=== PATIENT | male | born 1935 | race Caucasian/White ===

== ENCOUNTER 2019-08-09 09:21 | Emergency (ER) | payer MEDICARE ==
[~2019-08-09] VITALS: Ht 182.9 cm; Wt 81.2 kg
[~2019-08-09 09:21] MED LIST: Bactrim Ds Tab1 EACH PO; CYCL10 PO; Cleocin HCl300 MG PO; ENOX100I SQ; FINA5 PO; HYDACE5 PO; TAMS.4ER PO; TESTOSTERONE INJ; WARF5 PO
[2019-08-09] MEDS ORDERED: CEPH500 PO (09:58)
[2019-08-09] MEDS ORDERED: Mupirocin22 GM TOP (09:58)
== END 2019-08-09 10:39 | disposition home or self-care (01) ==
LOC: ER 09:21
DX: L03.011 Cellulitis of right finger (principal); L02.511 Cutaneous abscess of right hand; Z87.891 Personal history of nicotine dependence; Z88.8 Allergy status to other drugs, medicaments and biological substances; Z79.899 Other long term (current) drug therapy
CPT/HCPCS: 99283

== ENCOUNTER 2020-08-30 13:07 | Inpatient (IN) | payer MEDICARE ==
[~2020-08-30] VITALS: Ht 182.9 cm; Wt 77.0 kg
[~2020-08-30 13:07] MED LIST changes: +CEPH500 PO; +Mupirocin22 GM TOP
[2020-08-30 13:50] LABS: BASOPHILS ABSOLUTE AUTO 0.04 K/mm3 (0.00-0.23); BASOPHILS PERCENT AUTO 0 % (0-2); EOSINOPHILS PERCENT AUTO 0 % (0-6); Hematocrit 44.4 % (37.0-53.0); Hemoglobin 15.1 g/dL (13.5-17.5); IMMATURE GRAN ABSOLUTE AUTO 0.13 K/mm3 (0.00-0.10); IMMATURE GRAN PERCENT AUTO 1 % (0-1); LYMPHOCYTES PERCENT AUTO 4 % (21-46); MONOCYTES ABSOLUTE AUTO 1.41 K/mm3 (0.16-1.47); MONOCYTES PERCENT AUTO 6 % (4-13); Mean Corpuscular HGB 32.1 pg (26.0-34.0); Mean Corpuscular Volume 95 fL (80-100); Mean Platelet Volume 9.8 fL (9.1-12.4); NEUTROPHILS PERCENT AUTO 89 % (41-73); Platelet Count 253 K/mm3 (150-400); RDW Coefficient Variation 13.6 % (11.7-14.2); RDW Standard Deviation 47.4 fL (35.1-46.3); White Blood Cell Count 23.58 K/mm3 (4.00-11.30)
[2020-08-30 14:13] LABS: Alanine Aminotransfer (ALT/SGP 20 U/L (12-78); Alk Phos 103 U/L (50-136); Anion Gap 13 mmol/L (6-16); Aspartate Aminotrans (AST/SGOT 34 U/L (12-37); Bilirubin, Total 1.6 mg/dL (0.1-1.0); Blood Urea Nitrogen 25 mg/dL (8-24); Bun/Creatinine Ratio 29.2 (12.0-20.0); CO2, Blood 19 mmol/L (21-32); Calcium, Blood 8.6 mg/dL (8.5-10.1); Chloride, Blood 107 mmol/L (98-108); Creatinine, Blood 0.86 mg/dL (0.60-1.20); Globulin, Blood 4.1 g/dL (2.2-4.0); Glomerular Filtration Rate >60 (60-); Glucose, Blood 108 mg/dL (70-99); Potassium, Blood 4.4 mmol/L (3.5-5.5); Sodium, Blood 139 mmol/L (136-145); Total Protein, Blood 8.1 g/dL (6.4-8.2)
[2020-08-30 14:32] LABS: Source, Urine Clean Catch
[2020-08-30 14:37] LABS: Appearance, Urine Clear (Clear); Bilirubin, Urine Neg (Neg); Blood, Urine 2+ (Neg); Color, Urine Yellow (P-Yellow); Glucose Qualitative, Urine Neg (Neg); Ketones, Urine 3+ (Neg); Leukocyte Esterase, Urine 1+ (Neg); Nitrite, Urine Neg (Neg); Protein, Urine Neg (Neg); Specific Gravity, Urine 1.025 (1.003-1.022); Urobilinogen, Urine NORM (Normal)
[2020-08-30 14:46] LABS: Bacteria Rare /hpf; Red Blood Cells, Urine 0-2 /hpf (0-2); Squamous Epithelial Cells Not Seen /hpf (Few); White Blood Cells, Urine 0-2 /hpf (0-5)
[2020-08-30 17:58] LABS: Creatine Kinase MB 5.8 ng/mL (0.0-3.6); Creatine Kinase MB Index 0.9 (0.0-4.0)
--- NOTE | 2020-08-31 03:10 | NUR ---
85 year old MAle with hx of dementia admitted with multiple falls found down at home by Daughter who works 12 hour days. PT weak unsteady confused appears to be hallucinating talking about furry little animals woth sharp teeth pointed ears watching him in room. PT confused impulsive with poor safety awareness. Critically high lactic acid level doubled from 2.7 to 5.6 in a matter of 2.[address] Chin updated & NS 2 l fluid bolus given 30 ml per KG wt 77 kg minus fluids already given per sepsis protocol. PT had very firm abd stooling dark brown pasty stools. Incontient & using BSC with 2 assist. Fingerpainting shortly after toileting. PT voids frequently & has urgency. Bladder scan q 6 hr PRN order obtained & bladder scanned for 556 order to straight cath if PVR greater than [address] cath for 400 ml intermittantly blood tinged urine. Voids multiple times spills urinal several times. Multiple total bed & gown changes due to fecal incont & spilling urine. ON IV abx zosyn Q 6 hrs IV. ORal intake encouraged took fluids with setup & cues. PT had pulled out IV earlier despite securing IV. new IV start with attempts by 2 RNS. Fall precautions sepsis protocol continue.
[2020-08-31 05:21] LABS: BASOPHILS ABSOLUTE AUTO 0.04 K/mm3 (0.00-0.23); BASOPHILS PERCENT AUTO 0 % (0-2); EOSINOPHILS ABSOLUTE AUTO 0.06 K/mm3 (0.00-0.68); EOSINOPHILS PERCENT AUTO 1 % (0-6); Hematocrit 40.8 % (37.0-53.0); Hemoglobin 13.6 g/dL (13.5-17.5); IMMATURE GRAN ABSOLUTE AUTO 0.04 K/mm3 (0.00-0.10); IMMATURE GRAN PERCENT AUTO 0 % (0-1); LYMPHOCYTES ABSOLUTE AUTO 1.48 K/mm3 (0.84-5.20); LYMPHOCYTES PERCENT AUTO 11 % (21-46); MONOCYTES ABSOLUTE AUTO 1.01 K/mm3 (0.16-1.47); MONOCYTES PERCENT AUTO 8 % (4-13); Mean Corpuscular HGB 31.6 pg (26.0-34.0); Mean Corpuscular HGB Conc 33.3 g/dL (31.5-36.5); Mean Corpuscular Volume 95 fL (80-100); Mean Platelet Volume 9.5 fL (9.1-12.4); NEUTROPHILS ABSOLUTE AUTO 10.46 K/mm3 (1.96-9.15); NEUTROPHILS PERCENT AUTO 80 % (41-73); Platelet Count 212 K/mm3 (150-400); RDW Coefficient Variation 13.8 % (11.7-14.2); RDW Standard Deviation 48.4 fL (35.1-46.3); Red Blood Cell Count 4.31 M/mm3 (4.30-5.90); White Blood Cell Count 13.09 K/mm3 (4.00-11.30)
[2020-08-31 05:52] LABS: Alanine Aminotransfer (ALT/SGP 23 U/L (12-78); Albumin, Blood 3.5 g/dL (3.4-5.0); Alk Phos 87 U/L (50-136); Anion Gap 7 mmol/L (6-16); Aspartate Aminotrans (AST/SGOT 54 U/L (12-37); Bilirubin, Direct 0.3 mg/dL (0.0-0.3); Bilirubin, Indirect 0.8 mg/dL (0.1-0.7); Bilirubin, Total 1.1 mg/dL (0.1-1.0); Blood Urea Nitrogen 25 mg/dL (8-24); Bun/Creatinine Ratio 25.6 (12.0-20.0); CO2, Blood 24 mmol/L (21-32); Calcium, Blood 8.4 mg/dL (8.5-10.1); Chloride, Blood 111 mmol/L (98-108); Creatinine, Blood 0.98 mg/dL (0.60-1.20); Globulin, Blood 3.5 g/dL (2.2-4.0); Glomerular Filtration Rate >60 (60-); Glucose, Blood 97 mg/dL (70-99); Magnesium, Blood 2.2 mg/dL (1.6-2.4); Potassium, Blood 3.7 mmol/L (3.5-5.5); Sodium, Blood 142 mmol/L (136-145)
[2020-08-31 05:56] LABS: CPK Creatine Kinase 1531 U/L (39-308)
--- NOTE | 2020-08-31 06:05 | NUR ---
DR Estrada notified of critical lactic acid 3.1 down from 5.6. Continues on LR at 125 ml hr. Q 6 hr IV zosyn.
[2020-08-31 06:13] LABS: Creatine Kinase MB 17.7 ng/mL (0.0-3.6); Creatine Kinase MB Index 1.2 (0.0-4.0)
--- NOTE | 2020-08-31 08:30 | NUR ---
PT BLADDER SCANNED. 999 FLUID. STRAIGHT CATH, STERILE PROCESS MAINTAINED. 775 OUT. 2 SPOTS BLOOD ON CATH AT REMOVAL NO VISUAL BLOOD NOTED IN URINE. PT DAYANA WELL. RESCANNED RESIDUAL IS 75. PT QUITE CONFUSED, I FEEL WOULD PULL INDWELLING F/CATH.
--- NOTE | 2020-08-31 08:30 | NUR ---
PT PLEASNT DOES NOT FOLLOW PENITENTIARY INST. FOLLOWS SHORT TERM . JUMPING OUT OF BED. IS QUITE UNSTEADY. DENIES PAIN. CONFUSED. RAMBLES IDEA. FLIGHTY. ALMOST TALKING NONSTOP. SPEAKS ABOUT WHATEVER AND RANDOMLY COMMENTS WHAT SEES ON TV. DOES NOT REMEMBER TO USE CALL LITES. H/R REG, NO MURMER NOTED. NO TELE. LUNGS CLEAR RESP EASY, UNLABORED. ON R.A. BT X4 LAST BM X3 TODAY. SOFT. NOT DIARRHEA. VOIDS INCONT. BLADDER SCANNED. 999 FLUID. STRAIGHT CATHED. SEE OTHER NOTES. BED IN LOW POSITION, SRIDHAR LITE IN REACJ, BED ALARM ONFOR SAFETY.
--- NOTE | 2020-08-31 10:20 | NUR ---
PT EXITING BED SEVERAL TIMES THIS AM. IS WEAK. QUITE UNSTEADY. IS REDIREECTABLE BUT FORGETFUL. HIGH FALL RISK. UNABLE TO REMEMBER TO STAY IN BED OR TO DCALL FOR HELP. VEST PLACED FOR SAFETY. HAS PULLED 3 IVS THIS AM. PLACED SOFT WRIST RESTRAINT ON RT SIDE.
--- NOTE | 2020-08-31 14:30 | NUR ---
PT PLEASANT COOP, BUT NOT URINATING. RESCANNED. 765 FLUID. STRAIGHT CATH PERFORMED. 750 FLUID OUT. NO BLOOD NOTED IN URINE OR ON FLOEY CATH. STERILE FIELD PERFORMED T/O. PT DAYANA WELL.
--- NOTE | 2020-08-31 15:52 | NUR ---
PT PLEASANTLY CONFUSED ALL DAY. STRAIGHT CATHED IN AM AND THIS AFT. PT HAS PULLED 3 IV TODAY. EXPECT WOULD PULL BRADY IF LEFT IN. DR NOTIFIED OF PT STATUS. NO NEW CONCERNS TODAY. DAUGHTER STATES IS DEFINATELY WORSE THAN NORMAL. DISCUSSED THAT PT OFTEN WORSE WHEN IN HOSP THAN AT HOME. HE NOT FOLLOWING INST AT HOME PER DAUGHTER . NOT FEEDING SELF ETC. SPOKE TO DAUGHTER THIS AFT . BED IN LOW POSITION, CALL LITE IN REACH, BED ALARM ONFOR SAFETY. DID PLACE VEST AND RT WRIST RETRAIINT TODAY. DAYANA WELL.
--- NOTE | 2020-08-31 18:48 | NUR ---
PT BP ELEVATED. NO MEDS AVAIL. HAD HIM STAND TO URINATE. GOT ABOUT 50 CC PLUS FULLY WET ATTENDS. ALSO WET THRU MORALES. CALLED DR STRONG. OKAYED STRAIGHT CATH Q4 THEN HAD TO LEAVE FOR EMERGENCY . ASKED HER TO CALL ME BACK AFTER EMERGENCY FOR MORE ORDERS. NOTIFIED SHAYLA FINN. ASKING FOR POSSIBLE MED TO ASSIST IN URINATION AND PRN PO HTN MED.
--- NOTE | 2020-08-31 23:02 | NUR ---
DR Ardon called & updated on hypertension with normal BP after straight cath. Flomax bid to start tonight & PRN oral hydralazine q 6 hrs prn SBP greater than 165 dbp greater than 100. PT continues in vest restraint & 1 soft wrist restraint. Resting quietly but intermittantly talking Tamazight smut. IV fluids continued at 125 ml HR & Q 6 hr IV zosyn.
--- NOTE | 2020-09-01 00:12 | NUR ---
pt has dx dementia DTR will also be learning. PT very forgetful
--- NOTE | 2020-09-01 04:44 | NUR ---
PT given flomax & antihpertensive with helpful effect. PVR less than 400 ml & BPS 140s systolic. Continues plesantly confused incontient of bowel & bladder brown psty stools. less alert but had been awake most of night. continues to need vest & rt wrist soft restraint to prevent removal of IV & falls.
[2020-09-01 06:02] LABS: BASOPHILS ABSOLUTE AUTO 0.03 K/mm3 (0.00-0.23); BASOPHILS PERCENT AUTO 0 % (0-2); EOSINOPHILS ABSOLUTE AUTO 0.26 K/mm3 (0.00-0.68); EOSINOPHILS PERCENT AUTO 3 % (0-6); Hematocrit 36.1 % (37.0-53.0); Hemoglobin 11.5 g/dL (13.5-17.5); IMMATURE GRAN ABSOLUTE AUTO 0.04 K/mm3 (0.00-0.10); IMMATURE GRAN PERCENT AUTO 0 % (0-1); LYMPHOCYTES ABSOLUTE AUTO 1.51 K/mm3 (0.84-5.20); LYMPHOCYTES PERCENT AUTO 17 % (21-46); MONOCYTES ABSOLUTE AUTO 0.76 K/mm3 (0.16-1.47); MONOCYTES PERCENT AUTO 8 % (4-13); Mean Corpuscular HGB 30.9 pg (26.0-34.0); Mean Corpuscular HGB Conc 31.9 g/dL (31.5-36.5); Mean Corpuscular Volume 97 fL (80-100); Mean Platelet Volume 9.7 fL (9.1-12.4); NEUTROPHILS PERCENT AUTO 71 % (41-73); Platelet Count 186 K/mm3 (150-400); RDW Standard Deviation 50.4 fL (35.1-46.3); Red Blood Cell Count 3.72 M/mm3 (4.30-5.90)
[2020-09-01 06:21] LABS: CPK Creatine Kinase 808 U/L (39-308)
[2020-09-01 06:22] LABS: Alanine Aminotransfer (ALT/SGP 24 U/L (12-78); Albumin, Blood 2.9 g/dL (3.4-5.0); Albumin/Globulin Ratio 0.9 (0.8-1.8); Alk Phos 65 U/L (50-136); Anion Gap 6 mmol/L (6-16); Aspartate Aminotrans (AST/SGOT 51 U/L (12-37); Bilirubin, Total 0.5 mg/dL (0.1-1.0); Blood Urea Nitrogen 16 mg/dL (8-24); Bun/Creatinine Ratio 16.3 (12.0-20.0); CO2, Blood 25 mmol/L (21-32); Calcium, Blood 8.3 mg/dL (8.5-10.1); Chloride, Blood 112 mmol/L (98-108); Creatinine, Blood 0.98 mg/dL (0.60-1.20); Globulin, Blood 3.1 g/dL (2.2-4.0); Glomerular Filtration Rate >60 (60-); Glucose, Blood 109 mg/dL (70-99); Potassium, Blood 3.6 mmol/L (3.5-5.5); Sodium, Blood 143 mmol/L (136-145)
--- NOTE | 2020-09-01 06:37 | NUR ---
DR REINA CALLED DUE TO HIGH PVT GREATER THAN 872 ML. HAS BEEN STRAIGHT CATHED X 1 FOR 750 ML THIS SHIFT. hE OKS URBINA CATH due for need for multiple straight caths. Started flomax last night several large incont voids but unable to void on will. Will insert urbina cath for acute urinary retention.
[2020-09-01 09:49] LABS: Source, Urine Catheter
[2020-09-01 09:57] LABS: Bilirubin, Urine Neg (Neg); Blood, Urine 2+ (Neg); Glucose Qualitative, Urine Neg (Neg); Ketones, Urine Neg (Neg); Leukocyte Esterase, Urine Neg (Neg); Nitrite, Urine Neg (Neg); Protein, Urine Neg (Neg); Urobilinogen, Urine NORM (Normal)
[2020-09-01 10:04] LABS: Appearance, Urine Clear (Clear); Color, Urine Yellow (P-Yellow)
[2020-09-01 10:06] LABS: Bacteria Rare /hpf; Squamous Epithelial Cells Not Seen /hpf (Few); White Blood Cells, Urine 0-2 /hpf (0-5)
--- NOTE | 2020-09-01 16:40 | NUR ---
SHIFT SUMMARY PATIENT DENIES PAIN, NAUSEA, AND SHORTNESS OF BREATH. PATIENT ORIENTED TO SELF AND VERY CONFUSED. MEDARDO AND RIGHT SOFT WRIST IN PLACE. BRADY CATHETER PLACED. PATIENT NAPPING MOST OF SHIFT. DAUGHTER VITED IN AFTERNOON. EATING AND DRINKING WELL.
--- NOTE | 2020-09-02 04:02 | NUR ---
85 year old Male continues on IVF for sepsis rhabdo & continues with urbina cath due to acute urinary retention. He continues to require soft vest restraint & 1 soft wrist restraint to prevent falls & removal of medical equipment. He is more alert less nonsensical speech. He was able to feed self dinner, asked for roll & currently drinking ensure & water. Skin care to bilat LE & le skin tears on shins. PT denies acute pain some rt hip pain with rolling intermittantly. On room air needs to set with head of bed up with oral intake. PT has DTR Cheryl who wourks for long hours, needs safe placement DC planning involved. Very pleasant but has dementia & is incontinent of bowel several times smears needs assist & supervision to prevent further injury. Pressure area on bilat buttock resolving.
[2020-09-02 05:28] LABS: BASOPHILS ABSOLUTE AUTO 0.04 K/mm3 (0.00-0.23); BASOPHILS PERCENT AUTO 1 % (0-2); EOSINOPHILS ABSOLUTE AUTO 0.44 K/mm3 (0.00-0.68); EOSINOPHILS PERCENT AUTO 6 % (0-6); Hematocrit 34.4 % (37.0-53.0); Hemoglobin 11.3 g/dL (13.5-17.5); IMMATURE GRAN ABSOLUTE AUTO 0.04 K/mm3 (0.00-0.10); IMMATURE GRAN PERCENT AUTO 1 % (0-1); LYMPHOCYTES ABSOLUTE AUTO 1.62 K/mm3 (0.84-5.20); LYMPHOCYTES PERCENT AUTO 20 % (21-46); MONOCYTES ABSOLUTE AUTO 0.55 K/mm3 (0.16-1.47); MONOCYTES PERCENT AUTO 7 % (4-13); Mean Corpuscular HGB Conc 32.8 g/dL (31.5-36.5); Mean Corpuscular Volume 98 fL (80-100); Mean Platelet Volume 9.8 fL (9.1-12.4); NEUTROPHILS ABSOLUTE AUTO 5.27 K/mm3 (1.96-9.15); NEUTROPHILS PERCENT AUTO 66 % (41-73); Platelet Count 174 K/mm3 (150-400); RDW Coefficient Variation 14.2 % (11.7-14.2); RDW Standard Deviation 50.4 fL (35.1-46.3); Red Blood Cell Count 3.53 M/mm3 (4.30-5.90); White Blood Cell Count 7.96 K/mm3 (4.00-11.30)
[2020-09-02 05:51] LABS: Alanine Aminotransfer (ALT/SGP 23 U/L (12-78); Albumin, Blood 2.7 g/dL (3.4-5.0); Albumin/Globulin Ratio 0.9 (0.8-1.8); Alk Phos 61 U/L (50-136); Anion Gap 6 mmol/L (6-16); Aspartate Aminotrans (AST/SGOT 29 U/L (12-37); Bilirubin, Total 0.5 mg/dL (0.1-1.0); Blood Urea Nitrogen 16 mg/dL (8-24); Bun/Creatinine Ratio 15.5 (12.0-20.0); CO2, Blood 26 mmol/L (21-32); CPK Creatine Kinase 389 U/L (39-308); Calcium, Blood 8.1 mg/dL (8.5-10.1); Chloride, Blood 110 mmol/L (98-108); Creatinine, Blood 1.03 mg/dL (0.60-1.20); Glomerular Filtration Rate >60 (60-); Glucose, Blood 113 mg/dL (70-99); Potassium, Blood 3.6 mmol/L (3.5-5.5); Sodium, Blood 142 mmol/L (136-145); Total Protein, Blood 5.7 g/dL (6.4-8.2)
--- NOTE | 2020-09-02 16:19 | NUR ---
SHIFT SUMMARY PATIENT DENIES PAIN, NAUSEA, AND SHORTNESS OF BREATH. EATING AND DRINKING WELL. WORKED WITH PT/OT TODAY. UP 1X W/FWW AND GAIT BELT. UP IN CHAIR MOST OF AFTERNOON. RESTRAINTS DISCONTINUED. PATIENT INTERMITTENLY CONFUSED BUT MUCH CLEARER THAN YESTERDAY. PLEASANT AND COOPERATIVE WITH CARE.
--- NOTE | 2020-09-02 21:47 | NUR ---
1944 RESTING COMFORTABLY IN BED; CHEERFUL; ABLE TO FOLLOW ALL SIMPLE VERBAL COMMANDS; DENIES PAIN, BED ALARM APPLIED FOR SAFETY.
--- NOTE | 2020-09-03 04:26 | NUR ---
SHIFT SUMMARY: 85 Y/O MALE RESTED COMFORTABLY IN BED ALL SHIFT; HAPPY AND COOPERATIVE; ALERT AND ORIENTED X 2, ABLE TO FOLLOW SIMPLE VERBAL COMMANDS; BRADY DRAINING CLEAR YELLOW FLUID; DENIES PAIN OR NAUSEA; BED ALARM APPLIED FOR SAFETY, BED LOW POSITION WITH CALL LIGHT AT SIDE.
[2020-09-03 04:59] LABS: BASOPHILS ABSOLUTE AUTO 0.03 K/mm3 (0.00-0.23); BASOPHILS PERCENT AUTO 0 % (0-2); EOSINOPHILS ABSOLUTE AUTO 0.41 K/mm3 (0.00-0.68); EOSINOPHILS PERCENT AUTO 6 % (0-6); Hematocrit 33.5 % (37.0-53.0); IMMATURE GRAN ABSOLUTE AUTO 0.02 K/mm3 (0.00-0.10); IMMATURE GRAN PERCENT AUTO 0 % (0-1); LYMPHOCYTES ABSOLUTE AUTO 1.51 K/mm3 (0.84-5.20); LYMPHOCYTES PERCENT AUTO 22 % (21-46); MONOCYTES ABSOLUTE AUTO 0.48 K/mm3 (0.16-1.47); MONOCYTES PERCENT AUTO 7 % (4-13); Mean Corpuscular HGB 31.7 pg (26.0-34.0); Mean Corpuscular HGB Conc 32.8 g/dL (31.5-36.5); Mean Corpuscular Volume 97 fL (80-100); Mean Platelet Volume 9.5 fL (9.1-12.4); NEUTROPHILS ABSOLUTE AUTO 4.49 K/mm3 (1.96-9.15); NEUTROPHILS PERCENT AUTO 65 % (41-73); Platelet Count 167 K/mm3 (150-400); RDW Coefficient Variation 13.8 % (11.7-14.2); RDW Standard Deviation 48.8 fL (35.1-46.3); Red Blood Cell Count 3.47 M/mm3 (4.30-5.90); White Blood Cell Count 6.94 K/mm3 (4.00-11.30)
[2020-09-03 05:18] LABS: Alanine Aminotransfer (ALT/SGP 21 U/L (12-78); Albumin, Blood 2.7 g/dL (3.4-5.0); Albumin/Globulin Ratio 0.9 (0.8-1.8); Alk Phos 58 U/L (50-136); Anion Gap 4 mmol/L (6-16); Aspartate Aminotrans (AST/SGOT 26 U/L (12-37); Bilirubin, Total 0.5 mg/dL (0.1-1.0); Blood Urea Nitrogen 14 mg/dL (8-24); Bun/Creatinine Ratio 13.7 (12.0-20.0); CO2, Blood 27 mmol/L (21-32); CPK Creatine Kinase 368 U/L (39-308); Calcium, Blood 8.3 mg/dL (8.5-10.1); Chloride, Blood 113 mmol/L (98-108); Creatinine, Blood 1.02 mg/dL (0.60-1.20); Globulin, Blood 3.1 g/dL (2.2-4.0); Glomerular Filtration Rate >60 (60-); Glucose, Blood 95 mg/dL (70-99); Potassium, Blood 3.8 mmol/L (3.5-5.5); Sodium, Blood 144 mmol/L (136-145); Total Protein, Blood 5.8 g/dL (6.4-8.2)
--- NOTE | 2020-09-03 16:48 | NUR ---
SHIFT SUMMARY PT AxOx3-4 WITH INTERMITTENT CONFUSION. PLEASANT AND COOPERATIVE WITH CARE. FOLLOWING DIRECTIONS WITH NO IMPULSIVITY NOTED TODAY. PT WORKED WITH PT/OT TODAY, RECOMMENDING SNF FOR PLACEMENT. DAUGHTER, AMRIK IN ROOM TODAY. AGREEABLE TO INFORMATION TECHNOLOGY MANAGER PLACEMENT. PASS WORKER, SONA INVOLVED WITH CASE. PT DENIES PAIN. HAD LARGE BM TODAY. 1 PERSON ASSIST WITH GAITBELT AND FWW TO CHAIR AND BATHROOM. GOOD APPETITE. VITALS REVIEWED. PT CURRENTLY RESTING IN CHAIR WATCHING TV WITH CALL LIGHT IN REACH. DENIES ANY NEEDS AT THIS TIME.
--- NOTE | 2020-09-04 04:24 | NUR ---
SHIFT SUMMARY LYING IN SEMI FOWLERS WITH EYES OPEN. SMALL BM CLEANED FROM ATTENDS. POWDER APPLIED TO CHAFFED AREA TO LEFT GROIN FOLD. HAD A GOOD SNACK OF HALF A SANDWICH AND CHEESE AND IS RESTING WELL. BRADY CATH DRAINING CLEAR YELLOW URINE TO GRAVITY. REPLACED LEFT FA 20G PIV THAT PT REMOVED WITH RIGHT FA 20G PIV, TOLERATED WELL. DENIES PAIN, DISCOMFORT, OR FURTHER NEEDS AT THIS TIME. SAFETY MEASURES IN PLACE. WILL CONTINUE TO MONITOR AND GIVE HAND OFF TO ONCOMING SHIFT USING SBAR.
--- NOTE | 2020-09-04 17:34 | NUR ---
SHIFT SUMMARY PT AxOx2-3. MORE CONFUSED TODAY COMPARED TO YESTERDAY. PLEASANT AND COOPERATIVE WITH CARE. WORKED WITH PT AND OT TODAY. GOOD APPETITE. LAST BM TODAY. CAITLYN MOCTEZUMA DC'D TODAY. PT HAD A SHOWER TODAY. DR ANNA SARGENT'D TO ADVANCE PT DIET FOR DINNER. PER BILLPOSTING SUPERVISOR, SONA, PT WAS DENIED FOR SNF TODAY. SONA WILL UPDATE DAUGHTER TO DISCUSS NEXT STEP. NOTED RASH IN GROIN CREASES TODAY. RX CREAM ORDERED AND APPLIED. VITALS REVIEWED. CURRENTLY SITTING ON COMMODE. DENIES ANY NEEDS. CALL LIGHT IN REACH.
--- NOTE | 2020-09-05 04:20 | NUR ---
SHIFT SUMMARY ASSUMED CARE OF PT AT 1900. PT IS A/OX2. HEART SOUNDS REGULAR, LUNG SOUNDS CLEAR. PT HAS BEEN INCONTINENT OF URINE AND STOOL T/O THE NIGHT. PT SCROTUM IS RED AND THERE IS MEPELEX ON PT BUTTOCK DUE TO BLISTERS. PT IS 1P ASSIST TO BATHROOM W/ FWW. NO ACUTE EVENTS DURING THE NIGHT. PT SLEPT MOST OF THE NIGHT. CALL LIGHT IN REACH, BED IN LOWEST POSITION.
--- NOTE | 2020-09-05 16:59 | NUR ---
PATIENT A/OX3, FLIGHT OF IDEAS AT TIMES AND CAN BE FORGETFUL. VERY PLEASANT AND COOPERATIVE WITH CARE. AMBULATES WITH FWW, GB AND 1 ASSIST. ABLE TO MAKE NEEDS KNOWN. 20G IV TO L FA WNL AND SL. MUTIPLE SKIN TEARS TO UPPER AND LOWER EXTREMITIES, OPEN TO AIR AND HEALING. LUNGS CLEAR/DIM, ON RA. HYDRALAZINE GIVEN X1 THIS SHIFT FOR B/. DAUGHTER AMRIK AT BEDSIDE THIS EVENING. TOLERATING REGULAR DIET. CONTINENT/INCONTIENT OF URINE AND STOOL, WEARING ATTENDS. FALL PRECAUTIONS IN PLACE PER UNIT PROTOCOL.
--- NOTE | 2020-09-06 04:04 | NUR ---
SHIFT SUMMARY ASSUMED CARE OF PT AT 1900. PT IS A/OX2. HEART SOUNDS REGULAR, LUNG SOUNDS CLEAR. PT WAS C/I DURING THE NIGHT. 1P ASSIST TO BSC. PT WAS ABLE TO GET LOTS OF SLEEP THIS SHIFT. CALL LIGHT IN REACH, BED IN LOWEST POSITON.
[2020-09-06 04:46] LABS: BASOPHILS ABSOLUTE AUTO 0.03 K/mm3 (0.00-0.23); BASOPHILS PERCENT AUTO 0 % (0-2); EOSINOPHILS ABSOLUTE AUTO 0.31 K/mm3 (0.00-0.68); EOSINOPHILS PERCENT AUTO 4 % (0-6); Hematocrit 39.4 % (37.0-53.0); Hemoglobin 12.7 g/dL (13.5-17.5); IMMATURE GRAN ABSOLUTE AUTO 0.03 K/mm3 (0.00-0.10); IMMATURE GRAN PERCENT AUTO 0 % (0-1); LYMPHOCYTES ABSOLUTE AUTO 1.49 K/mm3 (0.84-5.20); LYMPHOCYTES PERCENT AUTO 20 % (21-46); MONOCYTES PERCENT AUTO 7 % (4-13); Mean Corpuscular HGB 31.1 pg (26.0-34.0); Mean Corpuscular HGB Conc 32.2 g/dL (31.5-36.5); Mean Corpuscular Volume 97 fL (80-100); Mean Platelet Volume 9.2 fL (9.1-12.4); NEUTROPHILS ABSOLUTE AUTO 5.12 K/mm3 (1.96-9.15); NEUTROPHILS PERCENT AUTO 69 % (41-73); Platelet Count 210 K/mm3 (150-400); RDW Coefficient Variation 13.9 % (11.7-14.2); RDW Standard Deviation 49.6 fL (35.1-46.3); Red Blood Cell Count 4.08 M/mm3 (4.30-5.90); White Blood Cell Count 7.48 K/mm3 (4.00-11.30)
[2020-09-06 05:12] LABS: Anion Gap 6 mmol/L (6-16); Blood Urea Nitrogen 15 mg/dL (8-24); CO2, Blood 26 mmol/L (21-32); CPK Creatine Kinase 122 U/L (39-308); Calcium, Blood 8.4 mg/dL (8.5-10.1); Chloride, Blood 110 mmol/L (98-108); Glomerular Filtration Rate >60 (60-); Glucose, Blood 94 mg/dL (70-99); Potassium, Blood 3.8 mmol/L (3.5-5.5); Sodium, Blood 142 mmol/L (136-145)
--- NOTE | 2020-09-06 17:24 | NUR ---
NO ACUTE CHANGES THIS SHIFT. PATIENT AWAITING SNF PLACEMENT. CONTINUES TO NEED ASSIST WITH TRANSFERRING AMD REQUIRES MANY QUES. A/OX2-3, PLEASANT AND COOPERATIVE WITH CARE. VSS, ON RA. DENIES ANY PAIN OR DISCOMFORT. CONTINENT TODAY, USES URINAL WITH ASSIST. DAUGHTER AMRIK AT BEDSIDE THIS EVENING. SHE WOULD LIKE AN UPDATE FROM JAILKEEPER ABOUT PROGRESS IN PLACING HER FATHER. AMRIK WILL BE AT WORK TOMORROW, BUT HER CELL AND WORK NUMBER ARE ON THE WHITE BOARD IN PATIENTS ROOM.
--- NOTE | 2020-09-07 03:55 | NUR ---
SHIFT SUMMARY ASSUMED CARE OF PT AT 1900. PT IS A/O2, PT HAS FLIGHT OF IDEAS AND WAS MORE DIFFICULT TO DIRECT THAN PREVIOUS SHIFTS. PT ATTEMPTED TO GET OUT OF BED MULTIPLE TIMES TO UNRINATE. PT IS 1P ASSIST WITH FWW. PT WAS ABLE TO SLEEP A COUPLD HOURS. PT WAS INCONTINENT OF BOWEL. NO OTHER EVENTS DURING THE NIGHT. CALL LIGHT IN REACH, BED IN LOWEST POSTION.
--- NOTE | 2020-09-08 03:59 | NUR ---
SUPERVISOR PLASTIC SHEETS SUMMARY A/O TO SELF ONLY. PT IS PLEASANT AND COOPERATIVE WITH CARE. SBA WITH FWW TO BATHROOM. CURRENTLY ON VIDEO MONITORING WITH BED ALARM ON FOR SAFETY. DENIES PAIN OR SOB. VSS. NO ACUTE CHANGES AT THIS TIME. BED IN LOWEST POSITION WITH CALL LIGHT IN REACH. WILL CONTINUE TO MONITOR AND REPORT TO ONCOMING RN.
--- NOTE | 2020-09-08 11:04 | NUR ---
PT ALERT AND ORIENTED TO SELF AND SITUATION. PT UP 1PA WITH FWW. PT IS A 1PA TO USE THE URINAL AT THE BEDSIDE WELL. PT DOES NOT CALL AND IS GENERALY WEAK SO BED AND CHAIR ALARMS ARE ON FOR SAFETY. PT UP TO CHAIR FOR BREAKFAST THIS MORNING. ATE QUITE A BIT OF HIS BREAKFAST TRAY WHICH HAD A LARGE AMOUNT OF FOOD ON IT. PT DENIES ANY PAIN AT THIS TIME WILL CTM.
--- NOTE | 2020-09-08 16:10 | NUR ---
CALLED DR AL- PT HAS BLISTERS RAISED RED WHAT LOOK LIKE THEY COULD BE PUSTULES, POSSIBLY SHINGLES. SPOKE TO DR ABOUT THEM, HE IS AWARE, PHOTOS PLACED IN THE CHART. PT DENIES PAIN AT THIS TIME. DR WILL LOOK AT THE RASH/BLISTERS TOMORROW.
--- NOTE | 2020-09-08 17:12 | NUR ---
DR AL CAME AND LOOKED AT THE DOCUMENTED PICTURES. ORDER RECIEVED TO JUSTINE LOPEZ AND PUT THE STEROID CREAM ON THE AREA. HE DOES NOT THINK THIS IS SHINGLES.
--- NOTE | 2020-09-08 17:39 | NUR ---
SHIFT SUMMARY- PT HAS HAD NO ACUTE CHANGE T/O THE SHIFT. HE HAD A FULL SHOWER TODAY, PLAN FOR POSSIBLE DISCHARGE TOMORROW. WAITING FOR PLACEMENT. DR AWARE OF BLISTERS ON THE PT BOTTOM, CREAM ORDERED FOR IT. PT HAS DENIED THE NEED FOR PAIN MEDICATION. WILL PASS ON TO NIGHT RN IN BEDSIDE REPORT. PT ALERT AND ORIENTED X3. HE IS FORGETFUL AND DOES NOT CALL. BED AND CHAIR ALARMS FOR SAFETY.
--- NOTE | 2020-09-09 05:28 | NUR ---
SHIFT SUMMARY PT IS PLEASANTLY CONFUSED. SLEPT WELL THROUGHOUT THE NIGHT. ONLY WAKING TO VOID. PT DID NOT CALL APPROPRIATELY. SETS OFF BED ALARM. GOOD STRENGTH WHEN STANDING AT SIDE OF BED WITH WALKER TO USE THE URINAL. PT CONTINENT THIS EVENING. AWAITING PLACEMENT. VITAL SIGNS STABLE. WILL CONTINUE TO MONITOR.
[2020-09-09] MEDS ORDERED: LISI20 PO (08:37)
[2020-09-09] MEDS ORDERED: BISA10S PR (08:37)
[2020-09-09] MEDS ORDERED: SENN187 PO (08:38)
[2020-09-09] MEDS ORDERED: CLOBET30L TOP (08:38)
[2020-09-09] MEDS ORDERED: TAMS.4ER PO (08:39)
--- NOTE | 2020-09-09 15:13 | NUR ---
RECIEVED A CALL FROM CARE MANAGEMENT- PT HAS BEEN ACCEPTED TO A FACILITY IN [place]. PLAN FOR DISCHARGE TOMORROW AT 1130. PT WILL HAVE A RAPID COVID ORDERED THAT NEEDS TO BE COLLECTED AT 0600 TOMORROW THE DAY OF DISCHARGE. WILL PASS ON TO NIGHT RN IN REPORT.
--- NOTE | 2020-09-09 16:31 | NUR ---
SHIFT SUMMARY- PT HAS HAD NO ACUTE CHANGES T/O THE SHIFT. PT HAS SLEPT OFF AND ON IN THE CHAIR WELL IN THE BED. PT DAUGHTER IS CURRENTLY AT THE BEDSIDE VISITING. THE PLAN IS FOR THE PT TO DISCHARGE TO A FACILITY IN [place] TOMORROW AT 1130. CALLED PT IS NOT RECIEVING ANYTHING IV AND REQUESTED NO IV ACCESS ORDER, AWAITING ORDER OR A CALL BACK LEFT A MESSAGE. PT IS PLEASENT AND COOPERATIVE WITH ALL CARE AND IS WILLING TO WORK WITH THERAPIES. WILL PASS ON TO NIGHT RN IN BEDSIDE REPORT.
--- NOTE | 2020-09-10 04:11 | NUR ---
SHIFT SUMMARY PT REMAINED PLEASANTLY CONFUSED. ALERT TO SELF ONLY. DOES NOT USE CALL LIGHT APPROPRIATELY BUT ONLY GETS UP WHEN HE HAS TO VOID. BED ALARM ON FOR SAFETY. CONTINENT THROUGHOUT THE NIGHT. STANDING AT THE SIDE OF THE BED TO USE THE URINAL. NO COMPLAINTS OF PAIN OR DISCOMFORT. VITAL SIGNS STABLE. PLAN FOR D/C TO SNF IN [place] TODAY. WILL CONTINUE TO MONITOR AND REPORT TO DAY RN.
[2020-09-10 08:15] LABS: Influenza A, PCR Negative (NEGATIVE); Influenza B, PCR Negative (NEGATIVE); Resp Syncytial Virus, PCR Negative (NEGATIVE); SARS-Cov-2 (COVID-19) PCR, MMC Negative (NEGATIVE)
--- NOTE | 2020-09-10 12:47 | NUR ---
DISCHARGE NOTE- PT WAS DISCHARGED TO A SKILLED FACILITY IN [place]. PT HAD A FULL SHOWER ATTENDS CHANGE AND WAS TOILETED PRIOR TO DISCHARGE. PT DENIED THE NEED FOR ANY PAIN MEDICATION. PT WAS TAKEN VIA TRANSPORT TO [place], [facility] PRIOR TO DISCHARGE.
== END 2020-09-10 11:41 | DRG 872 ==
LOC: ER 13:07 → MEDS 18:08
PROVIDERS: Emergency Medicine; Family Medicine; Internal Medicine; ADMIT Internal Medicine Gastroenterology
DX: A41.9 Sepsis, unspecified organism (principal); M62.82 Rhabdomyolysis; E87.2 Acidosis; G93.49 Other encephalopathy; Z20.828 Contact with and (suspected) exposure to other viral communicable diseases; Z78.1 Physical restraint status; K76.0 Fatty (change of) liver, not elsewhere classified; F03.90 Unspecified dementia, unspecified severity, without behavioral disturbance, psychotic disturbance, mood disturbance, and anxiety; I10 Essential (primary) hypertension; M25.551 Pain in right hip; L98.9 Disorder of the skin and subcutaneous tissue, unspecified; N40.0 Benign prostatic hyperplasia without lower urinary tract symptoms; Z86.718 Personal history of other venous thrombosis and embolism; Z87.891 Personal history of nicotine dependence; E78.00 Pure hypercholesterolemia, unspecified; E86.0 Dehydration
CPT/HCPCS: 0241U; 36415; 51701; 51702; 71046; 72070; 72170; 73502; 73522; 76700; 80048; 80053; 81001; 82248; 82550; 82553; 83605; 83735; 83880; 84145; 85025; 87040; 87086; 96361; 96365; 97110; 97116; 97161; 97165; 97530; 97535; 99285-25; A9270; G0008; J1650; J2543; J7030; J7050; J7120; Q2038